=== PATIENT | female | born 1940 | race Caucasian/White ===

== ENCOUNTER 2017-09-20 13:11 | Outpatient (CLI) | payer MEDICARE ==
--- NOTE | 2017-09-26 10:20 | Mammography Report ---
DATE OF SERVICE: 09/20/2017 DIGITAL BILATERAL SCREENING MAMMOGRAM: 09/20/2017 COMPARISON: Mammogram 08/27/2016. INDICATION: Screening mammography. TECHNIQUE: Bilateral CC and MLO breast views. FINDINGS The breast parenchyma is heterogeneously dense, which may limit the sensitivity of mammography. No dominant mass, architectural distortion, or concerning cluster of microcalcifications is seen. IMPRESSION: BI-RADS category 1 - Negative. RECOMMENDATIONS: Annual screening mammogram. STANDARD QUALIFYING STATEMENTS 1. This examination was reviewed with the aid of Computed-Aided Detection (CAD) . 2. A negative or benign imaging report should not delay biopsy if clinically suspicious findings are present. Consider surgical consultation if warranted. More than 5% of cancers are not identified by imaging. 3. Dense breasts may obscure an underlying neoplasm. TD: 09/24/2017 20:50 NERISSA
== END 2017-09-20 13:12 | disposition home or self-care (01) ==
LOC: DI.S 13:11
PROVIDERS: ATTEND Registered Nurse
DX: Z12.31 Encounter for screening mammogram for malignant neoplasm of breast (principal)
CPT/HCPCS: 77067